=== PATIENT | female | born 1985 | race American Indian/Alaskan Native ===

== ENCOUNTER 2017-11-22 16:34 | Emergency (ER) | payer SELFPAY ==
[2017-11-22 17:21] VITALS: BP 187/138
== END 2017-11-22 17:43 | disposition left against medical advice (07) ==
LOC: ED 16:34
DX: J11.1 Influenza due to unidentified influenza virus with other respiratory manifestations (principal); M79.1 Myalgia; R05 Cough; R11.0 Nausea; Z53.21 Procedure and treatment not carried out due to patient leaving prior to being seen by health care provider